=== PATIENT | female | born 1990 | race Caucasian/White ===

== ENCOUNTER 2019-03-31 00:45 | Emergency (ER) | payer MEDICAID ==
[~2019-03-31] VITALS: Ht 160 cm; Wt 90.7 kg
[2019-03-31 01:00] VITALS: BP 124/70
--- NOTE | 2019-03-31 01:15 | NUR ---
28 FEMALE BIB SELF C/O VAG BLEEDING. PT STATES SPOTTING X 2 WEEKS. HEAVY BLEEDING STARTED X 30 MINS AGO. PATIENT STATES SHE HAS A 7/10 SHARP ABDOMINAL PAIN THAT RADIATES TO THE BACK. PT. HAS NAUSEA BUT DENIES VOMITING/DIARRHEA/FEVER/CHILLS. ERMD MADE AWARE OF STATUS. SIDE RAILSX1. PLACED ON MONITOR. AT BEDSIDE. WILL CONTINUE TO MONITOR. LMP: IRREGULAR; 12/21/18 HX: DENIES AX: DENIES RX: VITAMINS
[2019-03-31 01:41] LABS: BILIRUBIN,URINE NEGATIVE (NEGATIVE); BLOOD, URINE 2+ (NEGATIVE); COLOR,URINE YELLOW (YELLOW); LEUKOCYTE ESTERASE ,URINE NEGATIVE (NEGATIVE); NITRITE, URINE NEGATIVE (NEGATIVE); UGLUCOSE NEGATIVE (NEGATIVE)
[2019-03-31 01:46] LABS: BASOPHILS % (AUTO) 0.2 % (0.0-2.0); EOSINOPHILS # (AUTO) 0.1 K/uL (0-0.4); HEMATOCRIT 38.2 % (36-48); HEMOGLOBIN 12.6 g/dL (12.0-16.0); LYMPHOCYTES # (AUTO) 2.1 K/uL (2.5-16.5); LYMPHOCYTES % (AUTO) 18.8 % (20.5-51.1); MEAN CORPUSCULAR HEMOGLOBIN 29 pg (27-31); MEAN CORPUSCULAR HGB CONC 33 g/dL (33-37); MONOCYTES # (AUTO) 0.6 K/uL (0.8-1.0); MONOCYTES % (AUTO) 5.7 % (1.7-9.3); NEUTROPHILS # (AUTO) 8.4 K/uL (1.8-7.7); NEUTROPHILS % (AUTO) 74.3 % (42.2-75.2); PLATELET COUNT (AUTO) 340 K/uL (140-450); RED BLOOD CELL COUNT(AUTO) 4.29 MIL/uL (4.20-5.40); RED CELL DISTRIBUTION WIDTH 13.5 % (11.6-13.7); WHITE BLOOD COUNT (AUTO) 11.3 K/uL (4.8-10.8)
[2019-03-31 01:53] LABS: APPEARANCE,URINE CLEAR (CLEAR)
[2019-03-31 01:54] LABS: RBC,URINE 11-20 (MOD) /HPF (0-5); WBC,URINE 0-5 /HPF (0-5)
[2019-03-31 01:55] LABS: ANION GAP 12.7 (8-16); CARBON DIOXIDE 27.3 mmol/L (21-32); CREATININE 0.7 mg/dL (0.6-1.3)
--- NOTE | 2019-03-31 03:00 | NUR ---
PATIENT IS SITTING QUIETLY IN BED. AT BEDSIDE. WILL CONTINUE TO MONITOR.
[2019-03-31 05:02] VITALS: BP 105/72
--- NOTE | 2019-03-31 05:02 | NUR ---
Per ERMKendal, okay to discharge patient. Patient discharged with v/s stable. Written and verbal after care instructions given and explained. Patient verbalized understanding. Ambulatory with steady gait. All questions addressed prior to discharge. Advised to follow up with PMD.
== END 2019-03-31 05:02 | disposition home or self-care (01) ==
LOC: MED 00:45
DX: O46.91 Antepartum hemorrhage, unspecified, first trimester (principal); O16.1 Unspecified maternal hypertension, first trimester; Z3A.09 9 weeks gestation of pregnancy
CPT/HCPCS: 36415; 76801; 80048; 81001; 84702; 85025; 86900; 86901; 99284; Q0092

== ENCOUNTER 2022-05-29 22:23 | Emergency (ER) | payer MEDICAID, OTHER ==
[~2022-05-29] VITALS: Ht 160 cm; Wt 102.5 kg
[2022-05-29 22:30] VITALS: BP 142/79
--- NOTE | 2022-05-29 22:40 | NUR ---
TO LOBBY A/W BED AMBULATORY WITH KIDS
--- NOTE | 2022-05-29 23:58 | NUR ---
PT TO BED #10
--- NOTE | 2022-05-29 23:58 | NUR ---
RECEIVED IN BED 10 FROM [facility]
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
--- NOTE | 2022-05-30 00:10 | NUR ---
DR BENAVIDEZ AT BEDSIDE FOR EXAM
[2022-05-30] MEDS ORDERED: diazePAM 5 MG TAB PO ONE (00:25)
[2022-05-30] MEDS ORDERED: KETOROLAC 30 MG/ML VIAL IM ONE (00:25)
[2022-05-30] MEDS ORDERED: NAPR-54 PO (02:16)
[2022-05-30] MEDS ORDERED: CYCL-711 PO (02:16)
[2022-05-30 03:05] VITALS: BP 142/79
--- NOTE | 2022-05-30 03:05 | NUR ---
Patient discharged with v/s stable. Written and verbal after care instructions given and explained. Patient verbalized understanding. Ambulatory with steady gait. All questions addressed prior to discharge. Advised to follow up with PMD.
== END 2022-05-30 03:05 | disposition home or self-care (01) ==
LOC: MED 22:23
DX: S39.012A Strain of muscle, fascia and tendon of lower back, initial encounter (principal); V49.88XA Car occupant (driver) (passenger) injured in other specified transport accidents, initial encounter; Y93.89 Activity, other specified; Y92.89 Other specified places as the place of occurrence of the external cause; Y99.8 Other external cause status
CPT/HCPCS: 71045; 72100; 81025; 96372; 99284; J1885